=== PATIENT | male | born 2000 ===

== ENCOUNTER 2024-03-05 14:27 | Emergency (ER) | payer BC, OTHER | END 2024-03-05 17:32 | disposition home or self-care (01) | LOC: MW.ED 14:27 | DX: S06.0X0A Concussion without loss of consciousness, initial encounter (principal); T22.20XA Burn of second degree of shoulder and upper limb, except wrist and hand, unspecified site, initial encounter; T31.0 Burns involving less than 10% of body surface; Z75.8 Other problems related to medical facilities and other health care; V49.50XA Passenger injured in collision with unspecified motor vehicles in traffic accident, initial encounter | CPT/HCPCS: 70450; 70450-26; 72125; 72125-26; 73030-26-RT; 73030-RT; 73060-26-RT; 73060-RT; 99283; 99284 ==